=== PATIENT | male | born 1950 | race Caucasian/White ===

== ENCOUNTER 2022-01-18 07:57 | Day surgery (SDC) | payer MEDICARE, BC ==
[~2022-01-18] VITALS: Ht 172.7 cm; Wt 67.8 kg
[2022-01-18] VITALS (19 sets, daily range): BP systolic 102–150; BP diastolic 52–72
[2022-01-18] MEDS ORDERED: normal saline 500ml IV soln 500 ML IV SCH (08:15)
[2022-01-18] MEDS ORDERED: fentaNYL/PF 50MCG/1 ML 2ML syringe IV ONE (08:20)
[2022-01-18] MEDS ORDERED: MIDAZolam 5mg/ml 2ml vial IV ONE (08:20)
[2022-01-18] MEDS ORDERED: MULT-1085 PO (08:28)
[2022-01-18] MEDS ORDERED: ASPI-611 PO (08:28)
[2022-01-18] MEDS ORDERED: RIVA20TA PO (08:28)
[2022-01-18] MEDS ORDERED: AMIO200T61 PO (08:28)
[2022-01-18] MEDS ORDERED: CARV3.122 PO (08:28)
[2022-01-18] MEDS ORDERED: ATOR10TA70 PO (08:28)
[2022-01-18] MEDS ORDERED: VALS40TA11 PO (08:28)
[2022-01-18 09:01] LABS: BASOPHILS % (AUTO) 0.8 % (0-1); EOSINOPHILS # (AUTO) 0.1 X10'3 (0-0.9); EOSINOPHILS % (AUTO) 1.1 % (0-6); HEMATOCRIT 41.6 % (42.0-52.0); HEMOGLOBIN 14.2 g/dl (14.0-17.9); LYMPHOCYTES # (AUTO) 1.1 X10'3 (1.1-4.8); LYMPHOCYTES % (AUTO) 20.9 % (21-51); MEAN CORPUSCULAR HEMOGLOBIN 32.3 PG (27.0-31.0); MEAN CORPUSCULAR HGB CONC 34.2 g/dL (33.0-36.5); MEAN CORPUSCULAR VOLUME 94.4 FL (78-98); MONOCYTES # (AUTO) 0.6 X10'3 (0-0.9); MONOCYTES % (AUTO) 11.4 % (2-12); NEUTROPHILS # (AUTO) 3.5 X10'3 (1.8-7.7); NEUTROPHILS % (AUTO) 65.8 % (42-75); PLATELET COUNT 187 X10'3 (140-440); RED CELL DISTRIBUTION WIDTH 13.8 % (11.5-14.5); WHITE BLOOD COUNT 5.3 X10'3 (4.5-11.0)
[2022-01-18] MEDS ORDERED: midazolam 1 mg/ML 2ml injection IV ONE (09:05)
[2022-01-18 09:14] LABS: ALBUMIN 3.4 G/DL (3.4-5.0); ANION GAP 10 (8-16); BLOOD UREA NITROGEN 22 MG/DL (7-18); BUN/CREATININE RATIO 22.9 (5.4-32.0); CALCIUM 8.2 MG/DL (8.5-10.1); CHLORIDE 108 MMOL/L (99-107); CREATININE 0.96 MG/DL (0.60-1.10); GLUCOSE 98 MG/DL (70-104); POTASSIUM 3.8 MMOL/L (3.5-5.1); SODIUM 141 MMOL/L (135-145); TOTAL CARBON DIOXIDE 23.1 MMOL/L (24-32); eGFR 77 ML/MIN
--- NOTE | 2022-01-18 11:25 | NUR ---
Phoned sister, gave update and approx DC home time.
--- NOTE | 2022-01-18 11:30 | NUR ---
Pt sitting up in bed eating sandwich and drinking juice without problems.
--- NOTE | 2022-01-18 11:36 | NUR ---
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 Dr. José notified of EKG.
--- NOTE | 2022-01-18 12:15 | NUR ---
[employer] rep at bedside interrogating pacemaker to better decipher underlying heart rhythm. Dr. José made aware that pt is still in abnormal rhythm.
--- NOTE | 2022-01-18 15:00 | NUR ---
phoned sister, gave update and approx DC home time.
== END 2022-01-18 16:10 | disposition home or self-care (01) ==
LOC: SSTAY O 07:57
PROVIDERS: ATTEND Internal Medicine Cardiovascular Disease
DX: I48.4 Atypical atrial flutter (principal); Z79.899 Other long term (current) drug therapy; I48.91 Unspecified atrial fibrillation; Z98.890 Other specified postprocedural states; I48.0 Paroxysmal atrial fibrillation; I42.7 Cardiomyopathy due to drug and external agent; I34.0 Nonrheumatic mitral (valve) insufficiency; E78.5 Hyperlipidemia, unspecified
CPT/HCPCS: 36415; 80048; 83735; 85025; 85610; 92960; 93005; J2250; J3010; J7030; J7040; A4620

== ENCOUNTER 2022-11-01 06:29 | Day surgery (SDC) | payer MEDICARE, BC ==
[~2022-11-01] VITALS: Ht 175.3 cm; Wt 68.4 kg
[2022-11-01] VITALS (7 sets, daily range): BP systolic 120–137; BP diastolic 55–68
[~2022-11-01 06:29] MED LIST: AMIO200T61 PO; ASPI-611 PO; ATOR10TA70 PO; CARV3.122 PO; MULT-1085 PO; RIVA20TA PO; VALS40TA11 PO
[2022-11-01] MEDS ORDERED: diphenhydrAMINE 25mg capsule PO PRN (06:45)
[2022-11-01] MEDS ORDERED: normal saline 1,000 ML IV SCH (06:45)
[2022-11-01] MEDS ORDERED: CARV6.253 PO (06:48)
[2022-11-01] MEDS ORDERED: MELA1TAB52 PO (06:48)
[2022-11-01 07:14] LABS: BASOPHILS # (AUTO) 0.1 X10'3 (0-0.2); BASOPHILS % (AUTO) 1.2 % (0-1); EOSINOPHILS # (AUTO) 0.2 X10'3 (0-0.9); EOSINOPHILS % (AUTO) 2.9 % (0-6); HEMATOCRIT 42.9 % (42.0-52.0); HEMOGLOBIN 14.5 g/dl (14.0-17.9); LYMPHOCYTES # (AUTO) 1.1 X10'3 (1.1-4.8); LYMPHOCYTES % (AUTO) 19.2 % (21-51); MEAN CORPUSCULAR HEMOGLOBIN 32.3 PG (27.0-31.0); MEAN CORPUSCULAR HGB CONC 33.9 g/dL (33.0-36.5); MEAN CORPUSCULAR VOLUME 95.4 FL (78-98); MEAN PLATELET VOLUME 8.1 FL (7.4-10.4); MONOCYTES # (AUTO) 0.7 X10'3 (0-0.9); MONOCYTES % (AUTO) 11.8 % (2-12); NEUTROPHILS # (AUTO) 3.7 X10'3 (1.8-7.7); NEUTROPHILS % (AUTO) 64.9 % (42-75); PLATELET COUNT 166 X10'3 (140-440); RED CELL DISTRIBUTION WIDTH 14.1 % (11.5-14.5); WHITE BLOOD COUNT 5.7 X10'3 (4.5-11.0)
[2022-11-01 07:21] LABS: ALBUMIN 3.6 G/DL (3.4-5.0); ANION GAP 8 (8-16); BLOOD UREA NITROGEN 18 MG/DL (7-18); BUN/CREATININE RATIO 17.1 (10.0-20.0); CALCIUM 8.6 MG/DL (8.5-10.1); CHLORIDE 107 MMOL/L (99-107); CREATININE 1.05 MG/DL (0.60-1.10); GLUCOSE 92 MG/DL (70-104); MAGNESIUM 2.1 MG/DL (1.5-2.4); SODIUM 141 MMOL/L (135-145); TOTAL CARBON DIOXIDE 26.2 MMOL/L (24-32); eGFR 69 ML/MIN
[2022-11-01] MEDS ORDERED: LIDOcaine 1% (10mg/ml) 2ml vial ONE (08:42)
[2022-11-01] MEDS ORDERED: verapamil 2.5 mg/ml inj IV ONE (08:42)
[2022-11-01] MEDS ORDERED: nitroGLYCERIN-Tridil 50MG/D5W 250 ML IV ONE (08:42)
[2022-11-01] MEDS ORDERED: midazolam 1 mg/ML 2ml injection ONE (08:43)
[2022-11-01] MEDS ORDERED: iohexol 350 MG/ML 50ML vial IV ONE (08:43)
[2022-11-01] MEDS ORDERED: iohexol 350MG/ML 100ml bottle IV ONE (08:43)
[2022-11-01] MEDS ORDERED: fentaNYL/PF 50MCG/1 ML 2ML syringe ONE (08:43)
[2022-11-01] MEDS ORDERED: heparin 1,000unit/ml 10ml vial 10 ML ONE (08:43)
[2022-11-01] MEDS ORDERED: LIDOcaine 1% (10mg/ml)w/preservative inj. 20ml MDV ONE (09:36)
[2022-11-01] MEDS ORDERED: normal saline 1000ml 1,000 ML IV SCH (10:40)
[2022-11-01] MEDS ORDERED: proCHLORperazine 10 MG/2 ml inj IV PRN (10:40)
[2022-11-01] MEDS ORDERED: HYDROcodone/acetaminophen 5mg/325mg tablet PO PRN (10:40)
[2022-11-01] MEDS ORDERED: HYDROcodone/acetaminophen 10/325mg tab PO PRN (10:40)
[2022-11-01] MEDS ORDERED: ondansetron/PF 4mg/2ml inj IV PRN (10:40)
== END 2022-11-01 13:30 | disposition home or self-care (01) ==
LOC: SSTAY O 06:29
PROVIDERS: ATTEND Internal Medicine Cardiovascular Disease
DX: R07.89 Other chest pain (principal); I42.7 Cardiomyopathy due to drug and external agent; I08.0 Rheumatic disorders of both mitral and aortic valves; I48.4 Atypical atrial flutter; I48.0 Paroxysmal atrial fibrillation; E78.5 Hyperlipidemia, unspecified; T50.905A Adverse effect of unspecified drugs, medicaments and biological substances, initial encounter; Z95.2 Presence of prosthetic heart valve; Z79.899 Other long term (current) drug therapy; Z79.82 Long term (current) use of aspirin; Y92.89 Other specified places as the place of occurrence of the external cause
CPT/HCPCS: 36415; 80048; 83735; 85025; 85610; 93005; 93460; 99152; 99153; A6258; J1644; J2250; J3010; J3490; J7030; Q0163; Q9967; A6402; C1751; C1769; C1894